=== PATIENT | male | born 1970 | race Caucasian/White ===

== ENCOUNTER 2020-11-14 18:42 | Inpatient (IN) | payer OTHER ==
[~2020-11-14] VITALS: Ht 177.8 cm; Wt 169.8 kg
[2020-11-14] MEDS ORDERED: 0.9%NACL 100ML 100 ML IV ONE (19:49)
[2020-11-14] MEDS ORDERED: PANTOPRAZOLE 40 MG/VIAL ONE (19:49)
[2020-11-14] MEDS ORDERED: 0.9%NACL 1000ML 1,000 ML IV ONE ×2 (19:52→23:26)
[2020-11-14 19:57] LABS: LYMPHOCYTES % (AUTO) 3.1 % (21.0-51.0); MEAN CORPUSCULAR HEMOGLOBIN 24.5 pg (27.0-33.0); MEAN CORPUSCULAR VOLUME 78.8 fL (79-99); MONOCYTES % (AUTO) 7.9 % (3.0-13.0); NEUTROPHILS % (AUTO) 84.3 % (40.0-77.0); PLATELET COUNT (AUTO) 97 K/uL (130-400); RED BLOOD CELL COUNT(AUTO) 1.84 MIL/uL (4.50-6.20); RED CELL DISTRIBUTION WIDTH 19.3 % (11.0-15.5); WHITE BLOOD COUNT (AUTO) 8.5 K/uL (4.8-10.8)
[2020-11-14 20:13] LABS: CREATININE 1.6 mg/dL (0.5-1.5); POTASSIUM 4.6 mmol/L (3.5-5.1)
[2020-11-14 20:20] LABS: ALBUMIN 1.6 g/dL (3.5-5.0); BILIRUBIN,TOTAL 1.3 mg/dL (0.2-1.0); TOTAL PROTEIN, SERUM 5.5 g/dL (6.0-8.3)
[2020-11-14 20:22] LABS: HEMATOCRIT 14.5 % (42-54)
[2020-11-14 20:27] LABS: INR 1.38 (0.85-1.15); PROTHROMBIN TIME 14.6 SEC (9.6-11.6)
[2020-11-14 20:28] LABS: PARTIAL THROMBOPLASTIN TIME 27.3 SEC (26.3-35.5)
[2020-11-14] MEDS ORDERED: 0.9% NACL 250ML 250 ML IV ONE (23:01)
[2020-11-14 23:20] LABS: % IRON SATURATION 17.5 % (30-44)
[2020-11-14] MEDS ORDERED: DiphenhydrAMINE HCL 50 MG/ML VIAL IV PRN (23:30)
[2020-11-14] MEDS ORDERED: ACETAMINOPHEN 325 MG TAB PO PRN ×2 (23:30)
[2020-11-14] MEDS: LACTATED RINGERS 1000ML 1,000 ML IV SCH (23:30)
[2020-11-14] MEDS ORDERED: DIPHENHYDRAMINE HCL 25 MG CAPSULE PO PRN (23:30)
[2020-11-14] MEDS ORDERED: MAG/ALUM/SIMETH 30 ML UDCUP PO PRN (23:30)
[2020-11-14] MEDS ORDERED: NITROGLYCERIN 0.4 MG SL TAB SL PRN (23:30)
[2020-11-14] MEDS ORDERED: ONDANSETRON 4MG INJ IV PRN (23:30)
[2020-11-14] MEDS ORDERED: GUAIFENESIN-DM 200/20 MG 10 ML PO PRN (23:30)
[2020-11-14] MEDS ORDERED: LACTULOSE 20 GM/30 ML UDCUP PO PRN (23:30)
[2020-11-15 03:31] LABS: APPEARANCE,URINE Cloudy (CLEAR); BILIRUBIN,URINE Small (NEGATIVE); COLOR,URINE Dark Yellow (YELLOW); GLUCOSE, URINE (UA) Negative (NEGATIVE); KETONES,URINE Negative (NEGATIVE); LEUKOCYTE ESTERASE ,URINE Small (NEGATIVE); NITRATE,URINE Negative (NEGATIVE); OCCULT BLOOD,URINE Negative (NEGATIVE); PROTEIN,URINE Negative (NEGATIVE)
[2020-11-15] MEDS ORDERED: LACTATED RINGERS 1000ML 1,000 ML IV ONE (04:04)
[2020-11-15 04:11] LABS: BACTERIA,URINE Few /HPF (None Seen); MUCUS,URINE Moderate LPF (None Seen); RBC,URINE 0-1 /HPF (0-1); RENAL EPITHELIAL CELLS,URINE Few /HPF (None Seen); SQUAMOUS EPITHELIAL CELL,UR Moderate /HPF (0-2)
[2020-11-15 06:01] LABS: BASOPHILS % (AUTO) 0.1 % (0.0-5.0); EOSINOPHILS % (AUTO) 0.1 % (0.0-8.0); LYMPHOCYTES % (AUTO) 2.9 % (21.0-51.0); MEAN CORPUSCULAR HEMOGLOBIN 25.4 pg (27.0-33.0); MEAN CORPUSCULAR VOLUME 81.9 fL (79-99); MONOCYTES % (AUTO) 7.3 % (3.0-13.0); NEUTROPHILS % (AUTO) 85.3 % (40.0-77.0); NUCLEATED RED BLOOD CELLS 1.5 % (0.0-0.19); PLATELET COUNT (AUTO) 82 K/uL (130-400); RED BLOOD CELL COUNT(AUTO) 1.93 MIL/uL (4.50-6.20); RED CELL DISTRIBUTION WIDTH 18.4 % (11.0-15.5); WHITE BLOOD COUNT (AUTO) 7.3 K/uL (4.8-10.8)
[2020-11-15 06:06] LABS: HEMATOCRIT 15.8 % (42-54)
[2020-11-15 07:02] LABS: HEMATOCRIT 15.7 % (42-54)
[2020-11-15] MEDS ORDERED: 0.9%NACL 1000ML 1,000 ML IV ONE (07:19)
[2020-11-15 08:47] VITALS: BP 117/65
[2020-11-15] MEDS: FAMOTIDINE 20MG VIAL IV SCH ×2 (09:00→20:42)
[2020-11-15] MEDS: LACTATED RINGERS 1000ML 1,000 ML IV SCH ×2 (09:30→14:45)
[2020-11-15 11:35] VITALS: BP 127/72
[2020-11-15 11:44] LABS: HEMATOCRIT 20.7 % (42-54)
[2020-11-15] MEDS ORDERED: FUROSEMIDE 20MG VIAL IV SCH (13:30)
[2020-11-15] MEDS ORDERED: 0.9% NACL 250ML 250 ML IV ONE (13:45)
[2020-11-15 16:18] VITALS: BP 106/61
[2020-11-15] MEDS: 0.9%NACL 1000ML 1,000 ML IV SCH (18:45)
[2020-11-15 20:25] VITALS: BP 132/77
[2020-11-15 20:37] LABS: HEMATOCRIT 20.1 % (42-54)
[2020-11-15] MEDS: SODIUM BICARBONATE 650 MG TAB PO SCH (20:42)
[2020-11-15] MEDS: ALLOPURINOL 100 MG TABLET PO SCH (20:42)
[2020-11-15 23:47] VITALS: BP 139/76
[2020-11-16] MEDS: 0.9%NACL 1000ML 1,000 ML IV SCH ×2 (04:32→07:47)
[2020-11-16] MEDS: LACTATED RINGERS 1000ML 1,000 ML IV SCH ×2 (05:14→15:30)
[2020-11-16 05:16] VITALS: BP 137/84
[2020-11-16 07:46] VITALS: BP 132/73
[2020-11-16] MEDS: SODIUM BICARBONATE 650 MG TAB PO SCH ×3 (08:47→20:10)
[2020-11-16] MEDS: FAMOTIDINE 20MG VIAL IV SCH ×2 (08:47→20:10)
[2020-11-16] MEDS: ALLOPURINOL 100 MG TABLET PO SCH ×2 (08:47→20:10)
[2020-11-16 10:59] VITALS: BP 122/69
[2020-11-16 15:25] VITALS: BP 123/68
[2020-11-16] MEDS ORDERED: 0.9% NACL 250ML 250 ML IV ONE (15:33)
[2020-11-16 18:55] LABS: BASOPHILS % (AUTO) 0.2 % (0.0-5.0); EOSINOPHILS % (AUTO) 0.3 % (0.0-8.0); MEAN CORPUSCULAR HEMOGLOBIN 26.7 pg (27.0-33.0); MEAN CORPUSCULAR HGB CONC 31.3 g/dL (32.0-36.0); MEAN CORPUSCULAR VOLUME 85.4 fL (79-99); MONOCYTES % (AUTO) 6.2 % (3.0-13.0); NEUTROPHILS % (AUTO) 86.8 % (40.0-77.0); NUCLEATED RED BLOOD CELLS 1.1 % (0.0-0.19); PLATELET COUNT (AUTO) 68 K/uL (130-400); RED BLOOD CELL COUNT(AUTO) 2.81 MIL/uL (4.50-6.20); WHITE BLOOD COUNT (AUTO) 6.3 K/uL (4.8-10.8)
[2020-11-16 19:06] LABS: CREATININE 1.2 mg/dL (0.5-1.5)
[2020-11-16 19:11] LABS: ALBUMIN 1.6 g/dL (3.5-5.0); BILIRUBIN,TOTAL 4.6 mg/dL (0.2-1.0); MAGNESIUM 2.3 mg/dL (1.80-2.40); PHOSPHORUS 3.3 mg/dL (2.5-4.9); TOTAL PROTEIN, SERUM 5.5 g/dL (6.0-8.3); URIC ACID 5.1 mg/dL (2.6-7.2)
[2020-11-16 20:01] VITALS: BP 119/61
[2020-11-17] VITALS (7 sets, daily range): BP systolic 109–129; BP diastolic 61–78
[2020-11-17] MEDS: 0.9%NACL 1000ML 1,000 ML IV SCH ×3 (00:45→21:09)
[2020-11-17 06:03] LABS: BASOPHILS % (AUTO) 0.2 % (0.0-5.0); EOSINOPHILS % (AUTO) 0.2 % (0.0-8.0); LYMPHOCYTES % (AUTO) 3.4 % (21.0-51.0); MEAN CORPUSCULAR HEMOGLOBIN 26.9 pg (27.0-33.0); MEAN CORPUSCULAR HGB CONC 31.7 g/dL (32.0-36.0); MEAN CORPUSCULAR VOLUME 84.9 fL (79-99); MONOCYTES % (AUTO) 8.7 % (3.0-13.0); NEUTROPHILS % (AUTO) 82.6 % (40.0-77.0); NUCLEATED RED BLOOD CELLS 0.8 % (0.0-0.19); PLATELET COUNT (AUTO) 58 K/uL (130-400); RED BLOOD CELL COUNT(AUTO) 2.45 MIL/uL (4.50-6.20); RED CELL DISTRIBUTION WIDTH 18.1 % (11.0-15.5); WHITE BLOOD COUNT (AUTO) 4.9 K/uL (4.8-10.8)
[2020-11-17 06:07] LABS: HEMATOCRIT 20.8 % (42-54)
[2020-11-17] MEDS: SODIUM BICARBONATE 650 MG TAB PO SCH ×3 (08:35→21:08)
[2020-11-17] MEDS: FAMOTIDINE 20MG VIAL IV SCH ×2 (08:35→21:08)
[2020-11-17] MEDS: ALLOPURINOL 100 MG TABLET PO SCH ×2 (08:35→21:08)
[2020-11-17 14:49] LABS: RETICULOCYTE % (AUTO) 4.17 % (0.42-2.23)
[2020-11-17] MEDS ORDERED: DEXAMETHASONE SOD PHOSPHATE 4 MG/ML 1ML VIAL IVP SCH (15:00)
[2020-11-17] MEDS ORDERED: 0.9% NACL 250ML 250 ML IV ONE (17:25)
[2020-11-18] VITALS: BP 135/70
[2020-11-18] MEDS: 0.9%NACL 1000ML 1,000 ML IV SCH (05:11)
[2020-11-18 05:50] VITALS: BP 120/56
[2020-11-18 08:00] VITALS: BP 129/64
[2020-11-18] MEDS: FAMOTIDINE 20MG VIAL IV SCH (09:06)
[2020-11-18] MEDS: ALLOPURINOL 100 MG TABLET PO SCH (09:06)
[2020-11-18] MEDS: SODIUM BICARBONATE 650 MG TAB PO SCH ×2 (09:06→14:05)
[2020-11-18 11:44] VITALS: BP 127/65
[2020-11-18] MEDS ORDERED: 0.9% NACL 250ML 250 ML IV ONE (12:07)
[2020-11-18 16:20] VITALS: BP 111/60
== END 2020-11-18 17:30 | disposition home or self-care (01) | DRG 840 ==
LOC: EDH 18:42 → OBSVTOIN 23:24 → INTOOBSV 23:24 → EDHIP 23:24 → 3DH 11-15 08:15
PROVIDERS: ADMIT Family Medicine; ATTEND Family Medicine
PROC: 30233N1 Transfusion of Nonautologous Red Blood Cells into Peripheral Vein, Percutaneous Approach (ICD-10-PCS; principal; 2020-11-14)
DX: C85.90 Non-Hodgkin lymphoma, unspecified, unspecified site (principal); E88.3 Tumor lysis syndrome; N17.9 Acute kidney failure, unspecified; Z68.43 Body mass index [BMI] 50.0-59.9, adult; D50.9 Iron deficiency anemia, unspecified; E66.01 Morbid (severe) obesity due to excess calories; D69.6 Thrombocytopenia, unspecified; R00.0 Tachycardia, unspecified; Z20.822 Contact with and (suspected) exposure to COVID-19
CPT/HCPCS: 36415; 36430; 70490; 71045; 71250; 74176; 80053; 81001; 82270; 82550; 82728; 83010; 83540; 83550; 83605; 83615; 83735; 84100; 84484; 84550; 85014; 85018; 85025; 85045; 85610; 85730; 86850; 86900; 86901; 86923; 87040; 87426; 93005; C9113; G0378; J1100; J1940; J3490; J7030; J7050; J7120; P9016; U0003

== ENCOUNTER 2020-12-02 10:33 | Inpatient (IN) | payer OTHER ==
[~2020-12-02] VITALS: Ht 172.7 cm; Wt 177.0 kg
[2020-12-02 10:57] LABS: EOSINOPHILS % (AUTO) 0.3 % (0.0-8.0); LYMPHOCYTES % (AUTO) 7.6 % (21.0-51.0); MEAN CORPUSCULAR HEMOGLOBIN 25.9 pg (27.0-33.0); MEAN CORPUSCULAR HGB CONC 29.5 g/dL (32.0-36.0); MONOCYTES % (AUTO) 12.6 % (3.0-13.0); NEUTROPHILS % (AUTO) 77.7 % (40.0-77.0); NUCLEATED RED BLOOD CELLS 2.4 % (0.0-0.19); PLATELET COUNT (AUTO) 76 K/uL (130-400); RED BLOOD CELL COUNT(AUTO) 1.58 MIL/uL (4.50-6.20); RED CELL DISTRIBUTION WIDTH 18.1 % (11.0-15.5); WHITE BLOOD COUNT (AUTO) 3.4 K/uL (4.8-10.8)
[2020-12-02 11:06] LABS: HEMATOCRIT 13.9 % (42-54)
[2020-12-02 11:11] LABS: CREATININE 1.9 mg/dL (0.5-1.5); POTASSIUM 3.6 mmol/L (3.5-5.1)
[2020-12-02 11:16] LABS: ALBUMIN 1.9 g/dL (3.5-5.0); BILIRUBIN,TOTAL 1.5 mg/dL (0.2-1.0); TOTAL PROTEIN, SERUM 6.1 g/dL (6.0-8.3)
[2020-12-02 12:27] LABS: INR 1.45 (0.85-1.15); PROTHROMBIN TIME 15.3 SEC (9.6-11.6)
[2020-12-02 12:29] LABS: PARTIAL THROMBOPLASTIN TIME 29.7 SEC (26.3-35.5)
[2020-12-02] MEDS ORDERED: ACETAMINOPHEN 325 MG TAB ONE (13:45)
[2020-12-02] MEDS ORDERED: 0.9% NACL 500ML IV.SOLN 500 ML IV SCH (14:45)
[2020-12-02] MEDS ORDERED: 0.9%NACL 1000ML 1,000 ML IV ONE (15:09)
[2020-12-02 21:23] LABS: CREATININE 2.1 mg/dL (0.5-1.5); POTASSIUM 4.1 mmol/L (3.5-5.1)
[2020-12-02 21:27] LABS: ALBUMIN 1.9 g/dL (3.5-5.0); BILIRUBIN,TOTAL 2.3 mg/dL (0.2-1.0); TOTAL PROTEIN, SERUM 6.1 g/dL (6.0-8.3)
[2020-12-02] MEDS ORDERED: DIPHENHYDRAMINE HCL 25 MG CAPSULE PO SCH (22:30)
[2020-12-02] MEDS ORDERED: ACETAMINOPHEN 325 MG TAB PO SCH (22:30)
[2020-12-02] MEDS ORDERED: LORATADINE 10 MG TABLET PO SCH (22:30)
[2020-12-03] VITALS (9 sets, daily range): BP systolic 92–110; BP diastolic 20–56
[2020-12-03] MEDS ORDERED: LORATADINE 10 MG TABLET ONE ×2 (00:08→06:36)
[2020-12-03] MEDS ORDERED: ACETAMINOPHEN 325 MG TAB ONE ×2 (00:08→06:36)
[2020-12-03] MEDS ORDERED: DIPHENHYDRAMINE HCL 25 MG CAPSULE ONE ×2 (00:09→06:37)
[2020-12-03 05:11] LABS: LYMPHOCYTES % (AUTO) 4.7 % (21.0-51.0); MEAN CORPUSCULAR HEMOGLOBIN 26.1 pg (27.0-33.0); MEAN CORPUSCULAR HGB CONC 30.5 g/dL (32.0-36.0); MEAN CORPUSCULAR VOLUME 85.3 fL (79-99); MONOCYTES % (AUTO) 11.7 % (3.0-13.0); NEUTROPHILS % (AUTO) 82.4 % (40.0-77.0); NUCLEATED RED BLOOD CELLS 1.8 % (0.0-0.19); PLATELET COUNT (AUTO) 73 K/uL (130-400); RED BLOOD CELL COUNT(AUTO) 2.38 MIL/uL (4.50-6.20); RED CELL DISTRIBUTION WIDTH 18.6 % (11.0-15.5); WHITE BLOOD COUNT (AUTO) 3.4 K/uL (4.8-10.8)
[2020-12-03 05:17] LABS: HEMATOCRIT 20.3 % (42-54)
[2020-12-03 05:32] LABS: CREATININE 2.1 mg/dL (0.5-1.5); POTASSIUM 3.8 mmol/L (3.5-5.1)
[2020-12-03] MEDS ORDERED: 0.9%NACL 1000ML 1,000 ML IV ONE (06:39)
[2020-12-03 20:09] LABS: HEMATOCRIT 17.7 % (42-54)
[2020-12-03] MEDS ORDERED: DiphenhydrAMINE HCL 50 MG/ML VIAL IV SCH (20:30)
[2020-12-03] MEDS ORDERED: DEXAMETHASONE SOD PHOSPHATE 4 MG/ML 1ML VIAL IVP SCH (20:30)
[2020-12-03] MEDS: FAMOTIDINE 20MG VIAL IV SCH (20:57)
[2020-12-03] MEDS ORDERED: DEXAMETHASONE SOD PHOSPHATE 4 MG/ML 1ML VIAL ONE (21:05)
[2020-12-03] MEDS ORDERED: DiphenhydrAMINE HCL 50 MG/ML VIAL ONE (21:05)
[2020-12-03] MEDS ORDERED: 0.9% NACL 250ML 250 ML IV ONE (21:06)
[2020-12-04] VITALS (7 sets, daily range): BP systolic 96–111; BP diastolic 41–60
[2020-12-04 06:02] LABS: LYMPHOCYTES % (AUTO) 4.5 % (21.0-51.0); MEAN CORPUSCULAR HEMOGLOBIN 26.5 pg (27.0-33.0); MEAN CORPUSCULAR HGB CONC 30.7 g/dL (32.0-36.0); MEAN CORPUSCULAR VOLUME 86.3 fL (79-99); MONOCYTES % (AUTO) 9.7 % (3.0-13.0); NEUTROPHILS % (AUTO) 84.8 % (40.0-77.0); NUCLEATED RED BLOOD CELLS 1.4 % (0.0-0.19); PLATELET COUNT (AUTO) 64 K/uL (130-400); RED BLOOD CELL COUNT(AUTO) 2.34 MIL/uL (4.50-6.20); RED CELL DISTRIBUTION WIDTH 17.8 % (11.0-15.5); WHITE BLOOD COUNT (AUTO) 2.9 K/uL (4.8-10.8)
[2020-12-04 06:04] LABS: HEMATOCRIT 20.2 % (42-54)
[2020-12-04 06:10] LABS: ALBUMIN 1.7 g/dL (3.5-5.0); BILIRUBIN,TOTAL 2.1 mg/dL (0.2-1.0); CREATININE 1.3 mg/dL (0.5-1.5); POTASSIUM 3.9 mmol/L (3.5-5.1); TOTAL PROTEIN, SERUM 5.6 g/dL (6.0-8.3)
[2020-12-04] MEDS ORDERED: FUROSEMIDE 20MG VIAL IV SCH (07:15)
[2020-12-04 08:21] LABS: BAND NEUTROPHILS % (MANUAL) 4 % (0-2); LYMPHOCYTES % (MANUAL) 5 % (22-44); MONOCYTES % (MANUAL) 4 % (2-9); SEGMENTED NEUTROPHILS % 87 % (40-70)
[2020-12-04 08:22] LABS: MAN.DIFF COMMENT-IMPRESSION MANUAL DIFFERENTIAL
[2020-12-04 08:27] LABS: PLATELET MORPHOLOGY COMMENT DECREASED
[2020-12-04] MEDS: FAMOTIDINE 20MG VIAL IV SCH ×2 (08:54→21:00)
[2020-12-04 15:52] LABS: HEMATOCRIT 23.8 % (42-54)
[2020-12-05 03:49] VITALS: BP 97/47
[2020-12-05 06:10] LABS: LYMPHOCYTES % (AUTO) 3.5 % (21.0-51.0); MEAN CORPUSCULAR HEMOGLOBIN 27.1 pg (27.0-33.0); MEAN CORPUSCULAR HGB CONC 31.3 g/dL (32.0-36.0); MEAN CORPUSCULAR VOLUME 86.9 fL (79-99); MONOCYTES % (AUTO) 11.4 % (3.0-13.0); NEUTROPHILS % (AUTO) 83.9 % (40.0-77.0); NUCLEATED RED BLOOD CELLS 1.2 % (0.0-0.19); PLATELET COUNT (AUTO) 52 K/uL (130-400); RED BLOOD CELL COUNT(AUTO) 2.21 MIL/uL (4.50-6.20); RED CELL DISTRIBUTION WIDTH 17.5 % (11.0-15.5); WHITE BLOOD COUNT (AUTO) 2.5 K/uL (4.8-10.8)
[2020-12-05 06:21] LABS: HEMATOCRIT 19.2 % (42-54)
[2020-12-05 06:58] LABS: LYMPHOCYTES % (MANUAL) 2 % (22-44); MAN.DIFF COMMENT-IMPRESSION MANUAL DIFFERENTIAL; MONOCYTES % (MANUAL) 6 % (2-9); PLATELET MORPHOLOGY COMMENT DECREASED; SEGMENTED NEUTROPHILS % 92 % (40-70)
[2020-12-05] MEDS: MIDODRINE HCL 5 MG TABLET PO SCH ×3 (07:03→22:34)
[2020-12-05 08:03] VITALS: BP 114/60
[2020-12-05] MEDS ORDERED: FUROSEMIDE 20MG VIAL IV SCH (10:24)
[2020-12-05] MEDS: FAMOTIDINE 20MG VIAL IV SCH ×2 (11:21→21:04)
[2020-12-05] MEDS: ALLOPURINOL 100 MG TABLET PO SCH ×2 (11:21→21:04)
[2020-12-05] MEDS: SODIUM BICARBONATE 650 MG TAB PO SCH ×2 (11:22→17:39)
[2020-12-05 12:00] VITALS: BP 114/60
[2020-12-05] MEDS ORDERED: ACETAMINOPHEN 500 MG TABLET PO PRN (12:07)
[2020-12-05] MEDS ORDERED: DiphenhydrAMINE HCL 50 MG/ML VIAL IV SCH (15:00)
[2020-12-05] MEDS ORDERED: DEXAMETHASONE SOD PHOSPHATE 4 MG/ML 1ML VIAL IVP SCH (15:00)
[2020-12-05 15:34] LABS: APPEARANCE,URINE SL CLOUDY (CLEAR); BILIRUBIN,URINE MODERATE (NEGATIVE); COLOR,URINE ORANGE (YELLOW); GLUCOSE, URINE (UA) NEGATIVE (NEGATIVE); KETONES,URINE NEGATIVE (NEGATIVE); LEUKOCYTE ESTERASE ,URINE TRACE (NEGATIVE); NITRATE,URINE NEGATIVE (NEGATIVE); OCCULT BLOOD,URINE NEGATIVE (NEGATIVE); PROTEIN,URINE TRACE mg/dL (NEGATIVE)
[2020-12-05] MEDS: 0.9%NACL 1000ML 1,000 ML IV SCH (15:38)
[2020-12-05 15:52] LABS: BACTERIA,URINE Few /HPF (None Seen); MUCUS,URINE Moderate LPF (None Seen); SQUAMOUS EPITHELIAL CELL,UR Few /HPF (0-2)
[2020-12-05 15:53] LABS: AMORPHOUS SEDIMENT,UR Moderate /LPF (None Seen)
[2020-12-05 16:00] VITALS: BP 96/69
[2020-12-05 16:56] LABS: HEMATOCRIT 21.7 % (42-54)
[2020-12-05] MEDS: CEFEPIME HCL 2 GM VIAL IVP SCH (17:39)
[2020-12-05] MEDS ORDERED: 0.9% NACL 250ML 250 ML IV ONE (17:45)
[2020-12-05 20:00] VITALS: BP 101/52
[2020-12-06] VITALS (7 sets, daily range): BP systolic 104–132; BP diastolic 49–65
[2020-12-06] MEDS ORDERED: FUROSEMIDE 20MG VIAL ONE (01:36)
[2020-12-06] MEDS: 0.9%NACL 1000ML 1,000 ML IV SCH ×2 (03:36→18:24)
[2020-12-06 04:52] LABS: HEMATOCRIT 23.9 % (42-54); LYMPHOCYTES % (AUTO) 3.5 % (21.0-51.0); MEAN CORPUSCULAR HEMOGLOBIN 27.3 pg (27.0-33.0); MEAN CORPUSCULAR HGB CONC 31.8 g/dL (32.0-36.0); MONOCYTES % (AUTO) 7.9 % (3.0-13.0); NEUTROPHILS % (AUTO) 87.7 % (40.0-77.0); PLATELET COUNT (AUTO) 69 K/uL (130-400); RED BLOOD CELL COUNT(AUTO) 2.78 MIL/uL (4.50-6.20); RED CELL DISTRIBUTION WIDTH 16.8 % (11.0-15.5); WHITE BLOOD COUNT (AUTO) 4.3 K/uL (4.8-10.8)
[2020-12-06 04:54] LABS: ALBUMIN 1.7 g/dL (3.5-5.0); BILIRUBIN,TOTAL 2.6 mg/dL (0.2-1.0); CREATININE 1.1 mg/dL (0.5-1.5); MAGNESIUM 2.2 mg/dL (1.80-2.40); PHOSPHORUS 4.1 mg/dL (2.5-4.9); TOTAL PROTEIN, SERUM 5.5 g/dL (6.0-8.3); URIC ACID 4.8 mg/dL (2.6-7.2)
[2020-12-06] MEDS: CEFEPIME HCL 2 GM VIAL IVP SCH ×2 (05:17→18:23)
[2020-12-06] MEDS: MIDODRINE HCL 5 MG TABLET PO SCH ×3 (06:18→21:46)
[2020-12-06] MEDS: FAMOTIDINE 20MG VIAL IV SCH ×2 (09:33→21:46)
[2020-12-06] MEDS: ALLOPURINOL 100 MG TABLET PO SCH ×2 (09:33→21:46)
[2020-12-06] MEDS: Vitamin B Complex/Vit C/Folic Acid PO SCH (09:33)
[2020-12-06] MEDS: SODIUM BICARBONATE 650 MG TAB PO SCH ×3 (09:38→18:23)
[2020-12-06 16:44] LABS: HEMATOCRIT 21.6 % (42-54)
[2020-12-06] MEDS ORDERED: DIPHENHYDRAMINE HCL 25 MG CAPSULE PO SCH (20:00)
[2020-12-07] VITALS: BP 125/50
[2020-12-07 04:00] VITALS: BP 113/41
[2020-12-07 05:23] LABS: HEMATOCRIT 21.3 % (42-54)
[2020-12-07 06:35] LABS: CREATININE 1.2 mg/dL (0.5-1.5); POTASSIUM 3.8 mmol/L (3.5-5.1)
[2020-12-07] MEDS ORDERED: DIPHENHYDRAMINE HCL 25 MG CAPSULE ONE (06:39)
[2020-12-07] MEDS ORDERED: DEXAMETHASONE SOD PHOSPHATE 10MG/ML 1ML VIAL ONE (06:39)
[2020-12-07] MEDS: CEFEPIME HCL 2 GM VIAL IVP SCH ×2 (06:41→17:02)
[2020-12-07] MEDS: 0.9%NACL 1000ML 1,000 ML IV SCH ×2 (06:42→21:15)
[2020-12-07] MEDS: MIDODRINE HCL 5 MG TABLET PO SCH ×3 (06:42→21:15)
[2020-12-07 08:00] VITALS: BP 112/65
[2020-12-07] MEDS: SODIUM BICARBONATE 650 MG TAB PO SCH ×3 (08:01→17:02)
[2020-12-07] MEDS: Vitamin B Complex/Vit C/Folic Acid PO SCH (08:01)
[2020-12-07] MEDS: ALLOPURINOL 100 MG TABLET PO SCH ×2 (08:01→21:15)
[2020-12-07] MEDS: FAMOTIDINE 20MG VIAL IV SCH ×2 (08:02→21:15)
[2020-12-07] MEDS ORDERED: DEXAMETHASONE SOD PHOSPHATE 4 MG/ML 1ML VIAL IM SCH (10:44)
[2020-12-07] MEDS ORDERED: FUROSEMIDE 20MG VIAL IV SCH (10:45)
[2020-12-07 11:59] VITALS: BP 107/56
[2020-12-07 14:54] LABS: HEMATOCRIT 22.3 % (42-54)
[2020-12-07 16:00] VITALS: BP 106/56
[2020-12-07 20:00] VITALS: BP 108/52
[2020-12-08] VITALS: BP 106/61
[2020-12-08 04:00] VITALS: BP 117/54
[2020-12-08 05:28] LABS: HEMATOCRIT 22.5 % (42-54); MEAN CORPUSCULAR HEMOGLOBIN 27.6 pg (27.0-33.0); MEAN CORPUSCULAR VOLUME 86.2 fL (79-99); MONOCYTES % (AUTO) 9.3 % (3.0-13.0); NEUTROPHILS % (AUTO) 86.9 % (40.0-77.0); PLATELET COUNT (AUTO) 65 K/uL (130-400); RED BLOOD CELL COUNT(AUTO) 2.61 MIL/uL (4.50-6.20); RED CELL DISTRIBUTION WIDTH 16.6 % (11.0-15.5)
[2020-12-08] MEDS: MIDODRINE HCL 5 MG TABLET PO SCH (05:37)
[2020-12-08] MEDS: CEFEPIME HCL 2 GM VIAL IVP SCH (05:37)
[2020-12-08 05:53] LABS: CREATININE 1.1 mg/dL (0.5-1.5); POTASSIUM 3.7 mmol/L (3.5-5.1)
[2020-12-08] MEDS ORDERED: AMOX-426 PO (06:21)
[2020-12-08] MEDS: ALLOPURINOL 100 MG TABLET PO SCH (07:34)
[2020-12-08] MEDS: SODIUM BICARBONATE 650 MG TAB PO SCH (07:34)
[2020-12-08] MEDS: Vitamin B Complex/Vit C/Folic Acid PO SCH (07:34)
[2020-12-08] MEDS: FAMOTIDINE 20MG VIAL IV SCH (07:35)
[2020-12-08 07:53] VITALS: BP 108/54
== END 2020-12-08 09:46 | disposition home or self-care (01) | DRG 840 ==
LOC: EDH 10:33 → EDHIP 14:44 → 2DH 12-03 11:33 → 4BH 12-03 23:24
PROVIDERS: ADMIT Family Medicine; ATTEND Family Medicine
PROC: 30233N1 Transfusion of Nonautologous Red Blood Cells into Peripheral Vein, Percutaneous Approach (ICD-10-PCS; principal; 2020-12-02)
PROC: 5A09357 Assistance with Respiratory Ventilation, Less than 24 Consecutive Hours, Continuous Positive Airway Pressure (ICD-10-PCS; 2020-12-04)
PROC: 5A09357 Assistance with Respiratory Ventilation, Less than 24 Consecutive Hours, Continuous Positive Airway Pressure (ICD-10-PCS; 2020-12-05)
DX: C81.90 Hodgkin lymphoma, unspecified, unspecified site (principal); A41.9 Sepsis, unspecified organism; E88.3 Tumor lysis syndrome; D61.818 Other pancytopenia; N17.9 Acute kidney failure, unspecified; N39.0 Urinary tract infection, site not specified; Z68.43 Body mass index [BMI] 50.0-59.9, adult; E66.01 Morbid (severe) obesity due to excess calories; D69.6 Thrombocytopenia, unspecified; N18.9 Chronic kidney disease, unspecified; G47.33 Obstructive sleep apnea (adult) (pediatric); I12.9 Hypertensive chronic kidney disease with stage 1 through stage 4 chronic kidney disease, or unspecified chronic kidney disease; K80.20 Calculus of gallbladder without cholecystitis without obstruction; R62.7 Adult failure to thrive; D53.9 Nutritional anemia, unspecified; Z20.822 Contact with and (suspected) exposure to COVID-19
CPT/HCPCS: 36415; 36430; 71045; 76770; 80048; 80053; 81001; 82270; 82550; 83605; 83615; 83735; 83880; 84100; 84484; 84550; 85014; 85018; 85025; 85610; 85730; 86850; 86870; 86900; 86901; 86905; 86922; 87040; 87077; 87088; 87186; 87426; 93005; 94660; 99291; G0378; J0692; J1100; J1200; J1940; J3490; J7030; J7050; P9016; Q0163; U0003

== ENCOUNTER 2020-12-09 16:59 | Inpatient (IN) | payer OTHER ==
[~2020-12-09] VITALS: Ht 177.8 cm; Wt 157.4 kg
[~2020-12-09 16:59] MED LIST: AMOX-426 PO
[2020-12-09 17:56] LABS: EOSINOPHILS % (AUTO) 0.2 % (0.0-8.0); HEMATOCRIT 22.9 % (42-54); LYMPHOCYTES % (AUTO) 3.3 % (21.0-51.0); MEAN CORPUSCULAR HEMOGLOBIN 27.6 pg (27.0-33.0); MEAN CORPUSCULAR HGB CONC 31.4 g/dL (32.0-36.0); MEAN CORPUSCULAR VOLUME 87.7 fL (79-99); MONOCYTES % (AUTO) 8.1 % (3.0-13.0); NEUTROPHILS % (AUTO) 86.4 % (40.0-77.0); PLATELET COUNT (AUTO) 98 K/uL (130-400); RED BLOOD CELL COUNT(AUTO) 2.61 MIL/uL (4.50-6.20); RED CELL DISTRIBUTION WIDTH 17.1 % (11.0-15.5); WHITE BLOOD COUNT (AUTO) 4.6 K/uL (4.8-10.8)
[2020-12-09 18:07] LABS: INR 1.65 (0.85-1.15); PROTHROMBIN TIME 17.2 SEC (9.6-11.6)
[2020-12-09 18:09] LABS: PARTIAL THROMBOPLASTIN TIME 33.2 SEC (26.3-35.5)
[2020-12-09 18:10] LABS: ALBUMIN 1.4 g/dL (3.5-5.0); BILIRUBIN,TOTAL 4.8 mg/dL (0.2-1.0); CREATININE 1.3 mg/dL (0.5-1.5); POTASSIUM 4.9 mmol/L (3.5-5.1); TOTAL PROTEIN, SERUM 5.3 g/dL (6.0-8.3)
[2020-12-09] MEDS ORDERED: CEFTRIAXONE 1G VIAL ONE (19:39)
[2020-12-09] MEDS ORDERED: ACETAMINOPHEN 325 MG TAB ONE (19:39)
[2020-12-09] MEDS ORDERED: 0.9%NACL 1000ML 1,000 ML IV ONE (19:39)
[2020-12-09] MEDS ORDERED: AZITHROMYCIN 500MG+NS 250ML 250 ML IV ONE (19:39)
[2020-12-09] MEDS ORDERED: VANCOMYCIN PROTOCOL PER PHARMACY IV SCH (22:30)
[2020-12-09] MEDS: ZOSYN 3.375GM+NS 50ML 50 ML IV SCH (22:30)
[2020-12-09] MEDS ORDERED: VANCOMYCIN 1G/250ML KIT 250 ML IV SCH (22:30)
[2020-12-09] MEDS ORDERED: MAG/ALUM/SIMETH 30 ML UDCUP PO PRN (22:45)
[2020-12-09] MEDS ORDERED: LACTULOSE 20 GM/30 ML UDCUP PO PRN (22:45)
[2020-12-09] MEDS: LACTATED RINGERS 1000ML 1,000 ML IV SCH (22:45)
[2020-12-09] MEDS ORDERED: NITROGLYCERIN 0.4 MG SL TAB SL PRN (22:45)
[2020-12-09] MEDS ORDERED: DiphenhydrAMINE HCL 50 MG/ML VIAL IV PRN (22:45)
[2020-12-09] MEDS ORDERED: ACETAMINOPHEN 325 MG TAB PO PRN (22:45)
[2020-12-09] MEDS ORDERED: ONDANSETRON 4MG INJ IV PRN (22:45)
[2020-12-09] MEDS ORDERED: GUAIFENESIN-DM 200/20 MG 10 ML PO PRN (22:45)
[2020-12-09] MEDS ORDERED: DIPHENHYDRAMINE HCL 25 MG CAPSULE PO PRN (22:45)
[2020-12-09] MEDS ORDERED: IOHEXOL 350 MG/ML 100ML INFUS..BTL IV ONE ×2 (23:24→23:44)
[2020-12-09 23:31] LABS: BILIRUBIN,URINE Moderate (NEGATIVE); GLUCOSE, URINE (UA) Negative (NEGATIVE); KETONES,URINE Negative (NEGATIVE); LEUKOCYTE ESTERASE ,URINE Small (NEGATIVE); NITRATE,URINE Positive (NEGATIVE); OCCULT BLOOD,URINE Negative (NEGATIVE); PROTEIN,URINE POS 1+ mg/dL (NEGATIVE)
[2020-12-09 23:33] LABS: APPEARANCE,URINE CLOUDY (CLEAR); COLOR,URINE Orange (YELLOW)
[2020-12-09 23:40] LABS: BACTERIA,URINE None Seen /HPF (None Seen); RBC,URINE None Seen /HPF (0-1); WBC,URINE 0-1 /HPF (0-1)
[2020-12-09 23:41] LABS: SQUAMOUS EPITHELIAL CELL,UR Moderate /HPF (0-2)
[2020-12-10] VITALS (24 sets, daily range): BP systolic 103–158; BP diastolic 47–90
[2020-12-10] MEDS ORDERED: ZOSYN 3.375GM+NS 50ML 50 ML IV ONE (00:11)
[2020-12-10] MEDS ORDERED: LACTATED RINGERS 1000ML 1,000 ML IV ONE (00:11)
[2020-12-10 00:58] LABS: HEMATOCRIT 23.3 % (42-54); MEAN CORPUSCULAR HGB CONC 30.9 g/dL (32.0-36.0); MEAN CORPUSCULAR VOLUME 90.7 fL (79-99); RED BLOOD CELL COUNT(AUTO) 2.57 MIL/uL (4.50-6.20); RED CELL DISTRIBUTION WIDTH 16.9 % (11.0-15.5); WHITE BLOOD COUNT (AUTO) 5.3 K/uL (4.8-10.8)
[2020-12-10 01:02] LABS: CREATININE 1.3 mg/dL (0.5-1.5); POTASSIUM 3.7 mmol/L (3.5-5.1)
[2020-12-10 01:06] LABS: ALBUMIN 1.4 g/dL (3.5-5.0); BILIRUBIN,TOTAL 4.2 mg/dL (0.2-1.0); CRP QUANTITATIVE 165.3 mg/L (0.00-9.0); TOTAL PROTEIN, SERUM 5.1 g/dL (6.0-8.3)
[2020-12-10] MEDS ORDERED: NOREPINEPHRIN 4MG/NS 250ML 250 ML IV ONE (02:32)
[2020-12-10] MEDS ORDERED: VANCOMYCIN 1G/250ML KIT 250 ML IV ONE (02:42)
[2020-12-10] MEDS: VANCOMYCIN 1G/250ML KIT 250 ML IV SCH ×2 (03:00→05:20)
[2020-12-10] MEDS: LACTATED RINGERS 1000ML 1,000 ML IV SCH ×3 (05:25→13:38)
[2020-12-10] MEDS: ZOSYN 3.375GM+NS 50ML 50 ML IV SCH ×3 (05:38→21:03)
[2020-12-10 05:41] LABS: MEAN CORPUSCULAR HEMOGLOBIN 27.5 pg (27.0-33.0); MEAN CORPUSCULAR HGB CONC 31.7 g/dL (32.0-36.0); MEAN CORPUSCULAR VOLUME 86.8 fL (79-99); RED BLOOD CELL COUNT(AUTO) 2.65 MIL/uL (4.50-6.20); RED CELL DISTRIBUTION WIDTH 16.7 % (11.0-15.5); WHITE BLOOD COUNT (AUTO) 6.3 K/uL (4.8-10.8)
[2020-12-10 06:14] LABS: ALBUMIN 1.4 g/dL (3.5-5.0); BILIRUBIN,TOTAL 3.6 mg/dL (0.2-1.0); CREATININE 1.1 mg/dL (0.5-1.5); POTASSIUM 3.6 mmol/L (3.5-5.1)
[2020-12-10] MEDS ORDERED: LACTATED RINGERS 1000ML IV SCH (09:15)
[2020-12-10 09:37] LABS: AMYLASE 12 U/L (25-115)
[2020-12-10 09:39] LABS: LIPASE < 50 U/L (114-286)
[2020-12-10] MEDS: FAMOTIDINE 20MG VIAL IV SCH ×2 (09:57→21:04)
[2020-12-10] MEDS ORDERED: LACTATED RINGERS 1000ML 1,000 ML IV SCH (10:45)
[2020-12-10] MEDS: NOREPINEPHRIN 4MG/NS 250ML 250 ML IV SCH ×2 (13:37→17:27)
[2020-12-10] MEDS: ACETAMINOPHEN 325 MG TAB PO PRN (13:39)
[2020-12-10 14:20] LABS: ABG BASE EXCESS -0.8 mmol/L (-2.0-3.0); ABG HCO3 21.7 mmol/L (21.0-28.0); ABG OXYGEN SATURATION 97.5 % (95.0-99.0); ABG PCO2 31 mmHg (35-48)
[2020-12-10] MEDS ORDERED: VANCOMYCIN 1G 1.5 GM in 0.9% NACL 250ML 250 ML IV SCH (17:00)
[2020-12-10] MEDS: FLUCONAZOLE 200 MG/NS 100 ML 100 ML IV SCH (21:03)
[2020-12-10] MEDS: ALLOPURINOL 100 MG TABLET PO SCH (21:03)
[2020-12-10] MEDS: SODIUM BICARBONATE 650 MG TAB PO SCH (21:04)
[2020-12-11] VITALS (24 sets, daily range): BP systolic 97–149; BP diastolic 42–75
[2020-12-11] MEDS: ACETAMINOPHEN 325 MG TAB PO PRN (00:54)
[2020-12-11] MEDS: LACTATED RINGERS 1000ML 1,000 ML IV SCH ×3 (01:48→14:15)
[2020-12-11 05:23] LABS: EOSINOPHILS % (AUTO) 0.5 % (0.0-8.0); LYMPHOCYTES % (AUTO) 3.9 % (21.0-51.0); MEAN CORPUSCULAR HEMOGLOBIN 27.2 pg (27.0-33.0); MEAN CORPUSCULAR HGB CONC 29.8 g/dL (32.0-36.0); MEAN CORPUSCULAR VOLUME 91.3 fL (79-99); MONOCYTES % (AUTO) 5.5 % (3.0-13.0); NEUTROPHILS % (AUTO) 88.7 % (40.0-77.0); PLATELET COUNT (AUTO) 56 K/uL (130-400); RED BLOOD CELL COUNT(AUTO) 2.06 MIL/uL (4.50-6.20); WHITE BLOOD COUNT (AUTO) 4.3 K/uL (4.8-10.8)
[2020-12-11 05:27] LABS: HEMATOCRIT 18.8 % (42-54)
[2020-12-11 05:38] LABS: CREATININE 0.9 mg/dL (0.5-1.5); CRP QUANTITATIVE 147.4 mg/L (0.00-9.0); POTASSIUM 3.3 mmol/L (3.5-5.1)
[2020-12-11] MEDS: ZOSYN 3.375GM+NS 50ML 50 ML IV SCH ×3 (06:06→22:30)
[2020-12-11] MEDS ORDERED: 0.9% NACL 250ML 250 ML IV ONE (06:30)
[2020-12-11] MEDS: FAMOTIDINE 20MG VIAL IV SCH ×2 (08:33→20:36)
[2020-12-11] MEDS: DEXAMETHASONE SOD PHOSPHATE 4 MG/ML 1ML VIAL IVP SCH (08:33)
[2020-12-11] MEDS: ALLOPURINOL 100 MG TABLET PO SCH ×2 (08:33→20:36)
[2020-12-11] MEDS: FLUCONAZOLE 200 MG/NS 100 ML 100 ML IV SCH (08:33)
[2020-12-11] MEDS ORDERED: VANCOMYCIN 1G 2 GM in 0.9% NACL 500ML IV.SOLN 500 ML IV SCH (08:45)
[2020-12-11 11:57] LABS: EOSINOPHILS % (AUTO) 0.3 % (0.0-8.0); LYMPHOCYTES % (AUTO) 2.4 % (21.0-51.0); MEAN CORPUSCULAR HEMOGLOBIN 27.5 pg (27.0-33.0); MEAN CORPUSCULAR HGB CONC 30.9 g/dL (32.0-36.0); MEAN CORPUSCULAR VOLUME 89.1 fL (79-99); MONOCYTES % (AUTO) 4.6 % (3.0-13.0); NEUTROPHILS % (AUTO) 91.4 % (40.0-77.0); NUCLEATED RED BLOOD CELLS 0.5 % (0.0-0.19); PLATELET COUNT (AUTO) 42 K/uL (130-400); RED BLOOD CELL COUNT(AUTO) 2.11 MIL/uL (4.50-6.20); RED CELL DISTRIBUTION WIDTH 16.4 % (11.0-15.5); WHITE BLOOD COUNT (AUTO) 3.7 K/uL (4.8-10.8)
[2020-12-11 12:03] LABS: HEMATOCRIT 18.8 % (42-54)
[2020-12-11] MEDS ORDERED: 0.9%NACL 100ML 100 ML IV ONE ×2 (13:37→17:24)
[2020-12-11] MEDS: SODIUM BICARBONATE 650 MG TAB PO SCH ×3 (14:12→20:36)
[2020-12-11] MEDS: MIDODRINE HCL 5 MG TABLET PO SCH ×2 (14:13→20:36)
[2020-12-11] MEDS: LEVOFLOXACIN 500 MG/D5W 100 ML 100 ML IV SCH (16:15)
[2020-12-11] MEDS: ESOMEPRAZOLE SODIUM 40 MG VIAL IVP SCH (20:36)
[2020-12-11] MEDS: VANCOMYCIN 1G 1.5 GM in 0.9% NACL 250ML 250 ML IV SCH (22:07)
[2020-12-12] VITALS (24 sets, daily range): BP systolic 87–135; BP diastolic 51–76
[2020-12-12 03:54] LABS: HEMATOCRIT 25.7 % (42-54); LYMPHOCYTES % (AUTO) 2.3 % (21.0-51.0); MEAN CORPUSCULAR HEMOGLOBIN 27.2 pg (27.0-33.0); MEAN CORPUSCULAR HGB CONC 31.5 g/dL (32.0-36.0); MEAN CORPUSCULAR VOLUME 86.2 fL (79-99); MONOCYTES % (AUTO) 3.8 % (3.0-13.0); NEUTROPHILS % (AUTO) 92.5 % (40.0-77.0); PLATELET COUNT (AUTO) 50 K/uL (130-400); RED BLOOD CELL COUNT(AUTO) 2.98 MIL/uL (4.50-6.20); RED CELL DISTRIBUTION WIDTH 16.6 % (11.0-15.5); WHITE BLOOD COUNT (AUTO) 8.9 K/uL (4.8-10.8)
[2020-12-12 04:23] LABS: ALBUMIN 1.3 g/dL (3.5-5.0); BILIRUBIN,TOTAL 4.3 mg/dL (0.2-1.0); CREATININE 1.1 mg/dL (0.5-1.5); CRP QUANTITATIVE 158.2 mg/L (0.00-9.0); POTASSIUM 3.6 mmol/L (3.5-5.1); TOTAL PROTEIN, SERUM 4.7 g/dL (6.0-8.3); URIC ACID 1.3 mg/dL (2.6-7.2)
[2020-12-12] MEDS: VANCOMYCIN 1G 1.5 GM in 0.9% NACL 250ML 250 ML IV SCH ×3 (05:55→23:07)
[2020-12-12] MEDS: ZOSYN 3.375GM+NS 50ML 50 ML IV SCH ×2 (06:30→17:47)
[2020-12-12] MEDS: LACTATED RINGERS 1000ML 1,000 ML IV SCH (06:35)
[2020-12-12] MEDS: FAMOTIDINE 20MG VIAL IV SCH ×2 (09:13→20:33)
[2020-12-12] MEDS: SODIUM BICARBONATE 650 MG TAB PO SCH ×3 (09:13→20:33)
[2020-12-12] MEDS: DEXAMETHASONE SOD PHOSPHATE 4 MG/ML 1ML VIAL IVP SCH (09:13)
[2020-12-12] MEDS: ALLOPURINOL 100 MG TABLET PO SCH ×2 (09:14→20:34)
[2020-12-12] MEDS: MIDODRINE HCL 5 MG TABLET PO SCH ×3 (09:14→20:34)
[2020-12-12] MEDS: FLUCONAZOLE 200 MG/NS 100 ML 100 ML IV SCH (09:18)
[2020-12-12] MEDS: ESOMEPRAZOLE SODIUM 40 MG VIAL IVP SCH ×2 (11:10→20:35)
[2020-12-12] MEDS ORDERED: LOPERAMIDE HCL 2 MG CAP PO PRN (13:30)
[2020-12-12] MEDS: LEVOFLOXACIN 500 MG/D5W 100 ML 100 ML IV SCH (16:22)
[2020-12-13] VITALS (24 sets, daily range): BP systolic 90–150; BP diastolic 39–84
[2020-12-13] MEDS: ZOSYN 3.375GM+NS 50ML 50 ML IV SCH ×3 (01:26→17:15)
[2020-12-13 04:05] LABS: BASOPHILS % (AUTO) 0.1 % (0.0-5.0); HEMATOCRIT 24.6 % (42-54); LYMPHOCYTES % (AUTO) 1.3 % (21.0-51.0); MEAN CORPUSCULAR HEMOGLOBIN 27.5 pg (27.0-33.0); MEAN CORPUSCULAR HGB CONC 31.7 g/dL (32.0-36.0); MEAN CORPUSCULAR VOLUME 86.6 fL (79-99); MONOCYTES % (AUTO) 2.4 % (3.0-13.0); NEUTROPHILS % (AUTO) 94.5 % (40.0-77.0); PLATELET COUNT (AUTO) 39 K/uL (130-400); RED BLOOD CELL COUNT(AUTO) 2.84 MIL/uL (4.50-6.20); RED CELL DISTRIBUTION WIDTH 16.8 % (11.0-15.5); WHITE BLOOD COUNT (AUTO) 12.7 K/uL (4.8-10.8)
[2020-12-13 04:27] LABS: ALBUMIN 1.2 g/dL (3.5-5.0); BILIRUBIN,TOTAL 5.1 mg/dL (0.2-1.0); CREATININE 1.6 mg/dL (0.5-1.5); POTASSIUM 3.6 mmol/L (3.5-5.1); TOTAL PROTEIN, SERUM 4.7 g/dL (6.0-8.3)
[2020-12-13] MEDS: VANCOMYCIN 1G 1.5 GM in 0.9% NACL 250ML 250 ML IV SCH ×2 (06:00→14:00)
[2020-12-13] MEDS: ALLOPURINOL 100 MG TABLET PO SCH ×2 (08:24→21:01)
[2020-12-13] MEDS: MIDODRINE HCL 5 MG TABLET PO SCH ×2 (08:24→18:30)
[2020-12-13] MEDS: PANTOPRAZOLE 40 MG TAB DR PO SCH ×2 (08:24→21:01)
[2020-12-13] MEDS: SODIUM BICARBONATE 650 MG TAB PO SCH ×3 (08:24→21:01)
[2020-12-13] MEDS: DEXAMETHASONE SOD PHOSPHATE 4 MG/ML 1ML VIAL IVP SCH (08:25)
[2020-12-13] MEDS: FLUCONAZOLE 200 MG/NS 100 ML 100 ML IV SCH (08:25)
[2020-12-13] MEDS: LEVOFLOXACIN 500 MG/D5W 100 ML 100 ML IV SCH (17:04)
[2020-12-14] VITALS (34 sets, daily range): BP systolic 92–132; BP diastolic 29–97
[2020-12-14] MEDS: ZOSYN 3.375GM+NS 50ML 50 ML IV SCH ×3 (01:00→16:53)
[2020-12-14 05:48] LABS: ALBUMIN 1.1 g/dL (3.5-5.0); BILIRUBIN,TOTAL 6.1 mg/dL (0.2-1.0); CREATININE 2.1 mg/dL (0.5-1.5); POTASSIUM 3.8 mmol/L (3.5-5.1); TOTAL PROTEIN, SERUM 4.5 g/dL (6.0-8.3)
[2020-12-14 05:55] LABS: BASOPHILS % (AUTO) 0.1 % (0.0-5.0); HEMATOCRIT 21.9 % (42-54); MEAN CORPUSCULAR HEMOGLOBIN 27.6 pg (27.0-33.0); MEAN CORPUSCULAR VOLUME 86.2 fL (79-99); MONOCYTES % (AUTO) 1.9 % (3.0-13.0); NEUTROPHILS % (AUTO) 95.6 % (40.0-77.0); PLATELET COUNT (AUTO) 23 K/uL (130-400); RED BLOOD CELL COUNT(AUTO) 2.54 MIL/uL (4.50-6.20); RED CELL DISTRIBUTION WIDTH 16.6 % (11.0-15.5); WHITE BLOOD COUNT (AUTO) 9.9 K/uL (4.8-10.8)
[2020-12-14] MEDS: MIDODRINE HCL 5 MG TABLET PO SCH ×4 (06:00→16:54)
[2020-12-14] MEDS: SODIUM BICARBONATE 650 MG TAB PO SCH ×3 (09:12→20:23)
[2020-12-14] MEDS: DEXAMETHASONE SOD PHOSPHATE 4 MG/ML 1ML VIAL IVP SCH (09:12)
[2020-12-14] MEDS: PANTOPRAZOLE 40 MG TAB DR PO SCH ×2 (09:12→20:23)
[2020-12-14] MEDS: FLUCONAZOLE 200 MG/NS 100 ML 100 ML IV SCH (09:12)
[2020-12-14] MEDS: ALLOPURINOL 100 MG TABLET PO SCH (09:12)
[2020-12-14] MEDS ORDERED: RENAL DOSE IV PRN (09:30)
[2020-12-14] MEDS ORDERED: D5W IV SCH (11:15)
[2020-12-14] MEDS ORDERED: LEVOFLOXACIN IV SCH (11:15)
[2020-12-14] MEDS ORDERED: PHARMACY COMMUNICATION MISC SCH (12:00)
[2020-12-14 13:03] LABS: CREATININE,URINE RANDOM 81 mg/dL (30-135); SODIUM,URINE RANDOM < 15 mmol/l (40-220)
[2020-12-14] MEDS ORDERED: 0.9% NACL 250ML 250 ML IV ONE (14:52)
[2020-12-14] MEDS: D5W IV SCH (16:53)
[2020-12-14] MEDS: LEVOFLOXACIN IV SCH (16:53)
[2020-12-14] MEDS ORDERED: VANCOMYCIN 1G 1.5 GM in 0.9% NACL 250ML 250 ML IV SCH (21:00)
[2020-12-15] VITALS (24 sets, daily range): BP systolic 89–128; BP diastolic 38–62
[2020-12-15] MEDS: ZOSYN 3.375GM+NS 50ML 50 ML IV SCH ×2 (00:33→09:00)
[2020-12-15] MEDS: MIDODRINE HCL 5 MG TABLET PO SCH ×4 (00:33→18:04)
[2020-12-15 05:47] LABS: HEMATOCRIT 22.2 % (42-54); LYMPHOCYTES % (AUTO) 1.1 % (21.0-51.0); MEAN CORPUSCULAR HEMOGLOBIN 27.5 pg (27.0-33.0); NEUTROPHILS % (AUTO) 96.1 % (40.0-77.0); PLATELET COUNT (AUTO) 12 K/uL (130-400); RED BLOOD CELL COUNT(AUTO) 2.58 MIL/uL (4.50-6.20); RED CELL DISTRIBUTION WIDTH 16.6 % (11.0-15.5); WHITE BLOOD COUNT (AUTO) 6.1 K/uL (4.8-10.8)
[2020-12-15 05:59] LABS: ALBUMIN 0.9 g/dL (3.5-5.0); BILIRUBIN,TOTAL 8.1 mg/dL (0.2-1.0); CREATININE 2.7 mg/dL (0.5-1.5); MAGNESIUM 1.9 mg/dL (1.80-2.40); PHOSPHORUS 4.6 mg/dL (2.5-4.9); POTASSIUM 3.9 mmol/L (3.5-5.1); TOTAL PROTEIN, SERUM 4.3 g/dL (6.0-8.3); URIC ACID 3.3 mg/dL (2.6-7.2)
[2020-12-15] MEDS ORDERED: RENAL DOSE IV PRN (07:30)
[2020-12-15] MEDS ORDERED: PHARMACY COMMUNICATION MISC SCH ×2 (07:30→14:15)
[2020-12-15] MEDS: SODIUM BICARBONATE 650 MG TAB PO SCH ×3 (09:00→20:58)
[2020-12-15] MEDS: DEXAMETHASONE SOD PHOSPHATE 4 MG/ML 1ML VIAL IVP SCH (09:00)
[2020-12-15] MEDS: PANTOPRAZOLE 40 MG TAB DR PO SCH ×2 (09:00→20:58)
[2020-12-15] MEDS: ALLOPURINOL 100 MG TABLET PO SCH (09:00)
[2020-12-15] MEDS ORDERED: RENAL DOSE IV SCH (12:15)
[2020-12-15] MEDS ORDERED: [UNRECOGNIZED DRUG - OTHER] MISC SCH (13:30)
[2020-12-15] MEDS: MEROPENEM 1 GM VIAL IVP SCH (14:07)
[2020-12-15] MEDS ORDERED: COMPOUND IV MISC 1 EACH IVSOLN MISC PRN (15:45)
[2020-12-15] MEDS: [UNRECOGNIZED DRUG - OTHER] IV SCH (16:45)
[2020-12-15] MEDS: DAPTOMYCIN IV SCH (16:45)
[2020-12-15] MEDS: LEVOFLOXACIN IV SCH (18:39)
[2020-12-15] MEDS: D5W IV SCH (18:39)
[2020-12-16] VITALS (28 sets, daily range): BP systolic 95–132; BP diastolic 45–71
[2020-12-16] MEDS: MIDODRINE HCL 5 MG TABLET PO SCH ×5 (00:29→23:22)
[2020-12-16] MEDS: MEROPENEM 1 GM VIAL IVP SCH ×2 (00:29→12:40)
[2020-12-16 05:39] LABS: ALBUMIN 0.9 g/dL (3.5-5.0); BILIRUBIN,TOTAL 8.7 mg/dL (0.2-1.0); CREATININE 3.4 mg/dL (0.5-1.5); MAGNESIUM 2.1 mg/dL (1.80-2.40); PHOSPHORUS 5.8 mg/dL (2.5-4.9); POTASSIUM 4.1 mmol/L (3.5-5.1); TOTAL PROTEIN, SERUM 4.3 g/dL (6.0-8.3)
[2020-12-16 06:13] LABS: BASOPHILS % (AUTO) 0.1 % (0.0-5.0); LYMPHOCYTES % (AUTO) 1.3 % (21.0-51.0); MEAN CORPUSCULAR VOLUME 84.9 fL (79-99); MONOCYTES % (AUTO) 2.2 % (3.0-13.0); NEUTROPHILS % (AUTO) 95.3 % (40.0-77.0); PLATELET COUNT (AUTO) 13 K/uL (130-400); RED BLOOD CELL COUNT(AUTO) 2.39 MIL/uL (4.50-6.20); RED CELL DISTRIBUTION WIDTH 16.5 % (11.0-15.5); WHITE BLOOD COUNT (AUTO) 8.9 K/uL (4.8-10.8)
[2020-12-16 06:29] LABS: HEMATOCRIT 20.3 % (42-54)
[2020-12-16 07:43] LABS: BILIRUBIN,DIRECT 7.6 mg/dL (0.0-0.3); BILIRUBIN,TOTAL 8.8 mg/dL (0.2-1.0)
[2020-12-16] MEDS: DEXAMETHASONE SOD PHOSPHATE 4 MG/ML 1ML VIAL IVP SCH (08:34)
[2020-12-16] MEDS: PANTOPRAZOLE 40 MG TAB DR PO SCH ×2 (08:34→23:23)
[2020-12-16] MEDS: ALLOPURINOL 100 MG TABLET PO SCH (08:34)
[2020-12-16] MEDS: SODIUM BICARBONATE 650 MG TAB PO SCH ×3 (08:35→23:23)
[2020-12-16] MEDS ORDERED: FLUCONAZOLE 200 MG/NS 100 ML 100 ML IV SCH (09:00)
[2020-12-16] MEDS: LACTATED RINGERS 1000ML 1,000 ML IV SCH ×2 (11:38→18:36)
[2020-12-16] MEDS: [UNRECOGNIZED DRUG - OTHER] IV SCH (16:00)
[2020-12-16] MEDS: DAPTOMYCIN IV SCH (16:00)
[2020-12-16] MEDS: LEVOFLOXACIN IV SCH (17:41)
[2020-12-16] MEDS: D5W IV SCH (17:41)
[2020-12-16] MEDS ORDERED: 0.9% NACL 250ML 250 ML IV ONE (20:10)
[2020-12-16] MEDS ORDERED: DEXAMETHASONE 10MG/ML 1ML VIAL 0 MG in 0.9%NACL 50ML 50 ML IV STA (21:10)
[2020-12-16] MEDS ORDERED: DEXAMETHASONE SOD PHOSPHATE 4 MG/ML 1ML VIAL IVP SCH (21:30)
[2020-12-17] VITALS (13 sets, daily range): BP systolic 100–126; BP diastolic 54–76
[2020-12-17] MEDS: MEROPENEM 1 GM VIAL IVP SCH ×2 (01:39→15:18)
[2020-12-17] MEDS: MIDODRINE HCL 5 MG TABLET PO SCH ×3 (05:14→18:56)
[2020-12-17] MEDS: LACTATED RINGERS 1000ML 1,000 ML IV SCH (05:14)
[2020-12-17 05:35] LABS: LYMPHOCYTES % (AUTO) 1.3 % (21.0-51.0); MEAN CORPUSCULAR HEMOGLOBIN 28.2 pg (27.0-33.0); MEAN CORPUSCULAR HGB CONC 33.7 g/dL (32.0-36.0); MEAN CORPUSCULAR VOLUME 83.8 fL (79-99); NEUTROPHILS % (AUTO) 95.1 % (40.0-77.0); PLATELET COUNT (AUTO) 16 K/uL (130-400); RED BLOOD CELL COUNT(AUTO) 2.34 MIL/uL (4.50-6.20); RED CELL DISTRIBUTION WIDTH 15.9 % (11.0-15.5); WHITE BLOOD COUNT (AUTO) 6.9 K/uL (4.8-10.8)
[2020-12-17 05:48] LABS: HEMATOCRIT 19.6 % (42-54)
[2020-12-17 05:59] LABS: BILIRUBIN,TOTAL 10.1 mg/dL (0.2-1.0); CREATININE 3.9 mg/dL (0.5-1.5); MAGNESIUM 2.3 mg/dL (1.80-2.40); PHOSPHORUS 6.9 mg/dL (2.5-4.9); POTASSIUM 4.4 mmol/L (3.5-5.1); TOTAL PROTEIN, SERUM 4.3 g/dL (6.0-8.3); URIC ACID 4.6 mg/dL (2.6-7.2)
[2020-12-17] MEDS ORDERED: TRYPSIN/BALSAM PERU/CASTOR OIL OINT 60GM TUBE TP SCH (09:00)
[2020-12-17] MEDS: PANTOPRAZOLE 40 MG TAB DR PO SCH ×2 (09:24→22:10)
[2020-12-17] MEDS: SODIUM BICARBONATE 650 MG TAB PO SCH ×3 (09:24→22:10)
[2020-12-17] MEDS: ALLOPURINOL 100 MG TABLET PO SCH (09:25)
[2020-12-17] MEDS: DEXAMETHASONE SOD PHOSPHATE 4 MG/ML 1ML VIAL IVP SCH (09:25)
[2020-12-17] MEDS: LEVOFLOXACIN IV SCH (15:29)
[2020-12-17] MEDS: D5W IV SCH (15:29)
[2020-12-17] MEDS: DAPTOMYCIN IV SCH (15:30)
[2020-12-17] MEDS: [UNRECOGNIZED DRUG - OTHER] IV SCH (15:30)
[2020-12-17] MEDS ORDERED: DEXAMETHASONE 10MG/ML 1ML VIAL 0 MG in 0.9%NACL 50ML 50 ML IV SCH (18:00)
[2020-12-17] MEDS ORDERED: DiphenhydrAMINE HCL 50 MG/ML VIAL IV SCH (18:00)
[2020-12-17] MEDS ORDERED: DEXAMETHASONE SOD PHOSPHATE 10MG/ML 1ML VIAL IV SCH (18:45)
[2020-12-18] MEDS: MEROPENEM 1 GM VIAL IVP SCH (00:01)
[2020-12-18] MEDS: MIDODRINE HCL 5 MG TABLET PO SCH (00:01)
[2020-12-18 01:24] LABS: LYMPHOCYTES % (AUTO) 1.5 % (21.0-51.0); MEAN CORPUSCULAR HEMOGLOBIN 28.4 pg (27.0-33.0); MEAN CORPUSCULAR HGB CONC 33.3 g/dL (32.0-36.0); MEAN CORPUSCULAR VOLUME 85.3 fL (79-99); MONOCYTES % (AUTO) 2.4 % (3.0-13.0); NEUTROPHILS % (AUTO) 94.6 % (40.0-77.0); PLATELET COUNT (AUTO) 22 K/uL (130-400); RED BLOOD CELL COUNT(AUTO) 2.11 MIL/uL (4.50-6.20); WHITE BLOOD COUNT (AUTO) 5.9 K/uL (4.8-10.8)
[2020-12-18 01:49] LABS: CREATININE 4.4 mg/dL (0.5-1.5); POTASSIUM 4.7 mmol/L (3.5-5.1)
[2020-12-18 04:00] VITALS: BP 110/62
== END 2020-12-18 06:30 | disposition designated cancer center or children's hospital (05) | DRG 871 ==
LOC: EDH 16:59 → EDHIP 22:31 → 2DH 12-10 04:13 → 2CH 12-14 07:53 → 2DH 12-16 18:25 → 4AH 12-17 16:25
PROVIDERS: ADMIT Family Medicine; ATTEND Family Medicine
PROC: 5A09357 Assistance with Respiratory Ventilation, Less than 24 Consecutive Hours, Continuous Positive Airway Pressure (ICD-10-PCS; 2020-12-14)
PROC: 5A09357 Assistance with Respiratory Ventilation, Less than 24 Consecutive Hours, Continuous Positive Airway Pressure (ICD-10-PCS; 2020-12-15)
PROC: 5A09357 Assistance with Respiratory Ventilation, Less than 24 Consecutive Hours, Continuous Positive Airway Pressure (ICD-10-PCS; 2020-12-15)
PROC: 30233N1 Transfusion of Nonautologous Red Blood Cells into Peripheral Vein, Percutaneous Approach (ICD-10-PCS; 2020-12-16)
PROC: 5A09357 Assistance with Respiratory Ventilation, Less than 24 Consecutive Hours, Continuous Positive Airway Pressure (ICD-10-PCS; 2020-12-16)
PROC: 5A09357 Assistance with Respiratory Ventilation, Less than 24 Consecutive Hours, Continuous Positive Airway Pressure (ICD-10-PCS; 2020-12-16)
PROC: 5A09357 Assistance with Respiratory Ventilation, Less than 24 Consecutive Hours, Continuous Positive Airway Pressure (ICD-10-PCS; 2020-12-16)
PROC: 30233R1 Transfusion of Nonautologous Platelets into Peripheral Vein, Percutaneous Approach (ICD-10-PCS; principal; 2020-12-17)
PROC: 5A09357 Assistance with Respiratory Ventilation, Less than 24 Consecutive Hours, Continuous Positive Airway Pressure (ICD-10-PCS; 2020-12-17)
PROC: 02HV33Z Insertion of Infusion Device into Superior Vena Cava, Percutaneous Approach (ICD-10-PCS; 2020-12-17)
DX: A41.9 Sepsis, unspecified organism (principal); R65.21 Severe sepsis with septic shock; E88.3 Tumor lysis syndrome; J18.9 Pneumonia, unspecified organism; G92 Toxic encephalopathy; C81.90 Hodgkin lymphoma, unspecified, unspecified site; D61.818 Other pancytopenia; E87.1 Hypo-osmolality and hyponatremia; Z68.42 Body mass index [BMI] 45.0-49.9, adult; N17.9 Acute kidney failure, unspecified; E66.01 Morbid (severe) obesity due to excess calories; I12.9 Hypertensive chronic kidney disease with stage 1 through stage 4 chronic kidney disease, or unspecified chronic kidney disease; R16.2 Hepatomegaly with splenomegaly, not elsewhere classified; N18.9 Chronic kidney disease, unspecified; K76.0 Fatty (change of) liver, not elsewhere classified; K80.20 Calculus of gallbladder without cholecystitis without obstruction; Z79.899 Other long term (current) drug therapy; Z74.01 Bed confinement status; Z20.822 Contact with and (suspected) exposure to COVID-19; Z80.8 Family history of malignant neoplasm of other organs or systems; R53.81 Other malaise; D69.6 Thrombocytopenia, unspecified
CPT/HCPCS: 36415; 36430; 36569; 36600; 70450; 71045; 71275; 74176; 76705; 76770; 80048; 80053; 80202; 81001; 82140; 82150; 82247; 82248; 82270; 82570; 82803; 82948; 83010; 83605; 83615; 83690; 83735; 84100; 84145; 84300; 84443; 84484; 84550; 85025; 85027; 85610; 85730; 86140; 86850; 86870; 86900; 86901; 86905; 86922; 87040; 87088; 87177; 87426; 87507; 87637; 87804; 93005; 93306; 93970; 94660; 99291; C1751; C1894; C9113; G0378; J0456; J0696; J0878; J1100; J1450; J1956; J2185; J2543; J3370; J3490; J7030; J7040; J7050; J7120; P9016; P9034; Q9967; U0003